=== PATIENT | female | born 1960 | race Caucasian/White ===

== ENCOUNTER 2022-08-30 08:59 | Emergency (ER) | payer OTHER ==
[~2022-08-30] VITALS: Ht 165.1 cm; Wt 68.5 kg
[2022-08-30 09:02] VITALS: BP 141/84
--- NOTE | 2022-08-30 09:17 | NUR ---
PT AMBULATED TO BED 9 WITH STEADY GAIT
--- NOTE | 2022-08-30 10:06 | NUR ---
62 Y/O FEMALE BIB C/O "FEELING LIKE MY HEART IS FLUTTERING"X1 WEEK. PER PT SHE TOOK A NEW GENERIC VERSION OF METFORMIN AND HAS BEEN HAVING THESE S/S. DENIES ANY CP, SOB, NV. PLACED ON THE AUTOMOTIVE ELECTRICAL FITTER IN A GOWN PMH: HTN, DM
[2022-08-30 10:35] LABS: BASOPHILS # (AUTO) 0.1 K/uL (0.00-0.22); BASOPHILS % (AUTO) 1.3 % (0.0-2.0); EOSINOPHILS # (AUTO) 0.4 K/uL (0-0.4); EOSINOPHILS % (AUTO) 5.6 % (0.0-4.0); HEMATOCRIT 40.5 % (36-48); HEMOGLOBIN 13.9 g/dL (12.0-16.0); LYMPHOCYTES # (AUTO) 2.6 K/uL (2.5-16.5); LYMPHOCYTES % (AUTO) 39.2 % (20.5-51.1); MEAN CORPUSCULAR HEMOGLOBIN 30 pg (27-31); MEAN CORPUSCULAR HGB CONC 34 g/dL (33-37); MEAN CORPUSCULAR VOLUME 87.7 fL (80-94); MONOCYTES # (AUTO) 0.6 K/uL (0.8-1.0); NEUTROPHILS # (AUTO) 2.9 K/uL (1.8-7.7); NEUTROPHILS % (AUTO) 44.9 % (42.2-75.2); PLATELET COUNT (AUTO) 336 K/uL (140-450); RED BLOOD CELL COUNT(AUTO) 4.62 MIL/uL (4.20-5.40); RED CELL DISTRIBUTION WIDTH 12.4 % (11.6-13.7); WHITE BLOOD COUNT (AUTO) 6.5 K/uL (4.8-10.8)
[2022-08-30 10:55] VITALS: BP 135/65
[2022-08-30 10:58] LABS: BARBITURATE, URINE NEGATIVE ng/ml (NEG <=200); BENZODIAZEPINE, URINE NEGATIVE ng/mL (NEG <=200); CANNABINOID, URINE NEGATIVE ng/mL (NEG <=50); COCAINE, URINE NEGATIVE ng/mL (NEG <=300); OPIATE, URINE NEGATIVE ng/mL (NEG <=2000); PHENCYCLIDINE SCREEN,URINE NEGATIVE ng/mL (NEG <=25)
--- NOTE | 2022-08-30 12:03 | NUR ---
PT IN BED, AWAKE AND ALERT, WITH AT BEDSIDE, ON GUIDANCE CONSULTANT
[2022-08-30 12:15] LABS: ALBUMIN 3.8 g/dL (3.4-5.0); ANION GAP 13.6 (8-16); CARBON DIOXIDE 25.8 mmol/L (21-32); CREATININE 0.7 mg/dL (0.6-1.3); POTASSIUM 3.4 mmol/L (3.5-5.1); TOTAL BILIRUBIN 0.5 mg/dL (0.0-1.0)
--- NOTE | 2022-08-30 12:26 | NUR ---
AMBULATED TO [facility] WITH STEADY GAIT
[2022-08-30 12:45] LABS: THYROID STIMULATING HORMONE 0.75 uIU/mL (0.34-3.74)
--- NOTE | 2022-08-30 12:52 | NUR ---
Patient discharged with v/s stable. Written and verbal after care instructions given and explained. Patient verbalized understanding. Ambulatory with steady gait. All questions addressed prior to discharge. Advised to follow up with PMD.
== END 2022-08-30 12:52 | disposition home or self-care (01) ==
LOC: MED 08:59
DX: R00.2 Palpitations (principal); E87.6 Hypokalemia; I10 Essential (primary) hypertension; E11.9 Type 2 diabetes mellitus without complications; K21.9 Gastro-esophageal reflux disease without esophagitis; E07.9 Disorder of thyroid, unspecified; Z98.890 Other specified postprocedural states; Z88.0 Allergy status to penicillin; Z88.1 Allergy status to other antibiotic agents
CPT/HCPCS: 36415; 71045; 80053; 80305; 81002; 81025; 83880; 84443; 84484; 85025; 85379; 93005; 99285; Q0092

== ENCOUNTER 2023-10-30 09:28 | Outpatient (CLI) | payer OTHER | END 2023-10-30 18:15 | disposition home or self-care (01) | LOC: MLB 09:28 | PROVIDERS: ATTEND Nurse Practitioner Family | DX: E11.9 Type 2 diabetes mellitus without complications (principal) ==